=== PATIENT | male | born 1980 | race Caucasian/White ===

== ENCOUNTER 2022-02-21 11:59 | Emergency (ER) | payer SELFPAY ==
[~2022-02-21] VITALS: Ht 177.8 cm; Wt 84.8 kg
[2022-02-21 12:04] VITALS: BP 129/89
--- NOTE | 2022-02-21 12:31 | NUR ---
AMBULATED TO BED 2
--- NOTE | 2022-02-21 12:41 | NUR ---
42 Y/O MALE C/O RIGHT CALF PAIN 06/23 DESCRIBES AND TENDERNESS X3DAYS. DENIES INJURY OR TRAUMA.PT STATES HE TOOK ASPIRIN AT HOME PRIOR TO ARRIVAL WITH NO RELIEF. PT STATES HE FELT WARMTH AT SITE ON SATURDAY, NO REDNESS NOTED., NON-PITTING EDEDMA +2. DENIES PMH NKA
--- NOTE | 2022-02-21 13:39 | NUR ---
US AT PT BEDSIDE.
--- NOTE | 2022-02-21 14:41 | NUR ---
PT RESTING, VSS, WILL CONTINUE TO MONITOR.
[2022-02-21] MEDS ORDERED: IBUP-1842 PO (15:02)
--- NOTE | 2022-02-21 15:27 | NUR ---
DR. GONZALEZ WITH PT FOR RE-EVALUATION.
[2022-02-21 15:50] VITALS: BP 135/73
--- NOTE | 2022-02-21 15:51 | NUR ---
Patient discharged with v/s stable. Written and verbal after care instructions given FOR [employer]INS and explained. Patient alert, oriented and verbalized understanding of instructions. Ambulatory with steady gait. All questions addressed prior to discharge. ID band removed. Patient advised to follow up with PMD. Rx of IBUPROFEN given. Patient educated on indication of medication including possible reaction and side effects. Opportunity to ask questions provided and answered.
== END 2022-02-21 15:51 | disposition home or self-care (01) ==
LOC: MED 11:59
DX: I83.811 Varicose veins of right lower extremity with pain (principal); Z79.1 Long term (current) use of non-steroidal anti-inflammatories (NSAID)
CPT/HCPCS: 93971; 99284; Q0092